=== PATIENT | male | born 1950 | race Caucasian/White ===

== ENCOUNTER → 2025-02-10 11:43 | Outpatient (REF) | payer MEDICARE, OTHER, SELFPAY | LOC: HWRCS 11:43 | PROVIDERS: ATTENDING PHYSICIAN Internal Medicine Cardiovascular Disease; FAMILY PHYSICIAN Family Medicine | DX: R06.02 Shortness of breath (principal) | CPT/HCPCS: 78452; 93017; A9500; J2785 ==